=== PATIENT | male | born 1945 | race Caucasian/White ===

== ENCOUNTER 2020-10-21 09:28 | Outpatient (REF) | payer MEDICARE, OTHER, SELFPAY ==
[2020-10-21 10:50] LABS: MANUAL DIFF FLAG NO
[2020-10-21 11:03] LABS: Basophils Absolute Auto 0.1 X10*3/uL (0.0-0.2); Basophils Percent Auto 0.7 % (0-2); Eosinophils Absolute Auto 0.3 X10*3/uL (0.0-0.4); Eosinophils Percent Auto 3.4 % (0-4); Hematocrit 38.4 % (42-52); Hemoglobin 13.4 g/dl (14.0-18.0); Imm Gran Abs Auto 0.02 X10*3/uL (0.00-0.03); Imm Gran Pct Auto 0.3 % (0.0-0.4); Lymphocytes Absolute Auto 2.1 X10*3/uL (1.2-4.9); Lymphocytes Percent Auto 28.1 % (20-40); Mean Corpuscular HGB Conc 34.9 g/dl (31.0-36.0); Mean Corpuscular Hemoglobin 33.6 pg (27.0-33.0); Mean Corpuscular Volume 96.2 fL (80-98); Mean Platelet Volume 9.3 fL (9.4-12.4); Monocytes Absolute Auto 0.9 X10*3/uL (0.1-1.2); Monocytes Percent Auto 11.6 % (2-11); Neutrophils Absolute Auto 4.1 X10*3/uL (2.0-8.3); Neutrophils Percent Auto 55.9 % (45-73); Platelet Count 313 X10*3/uL (160-400); Red Blood Count 3.99 X10*6/uL (4.60-5.80); Red Cell Distribution Width 12.9 % (11.0-16.0); White Blood Count 7.4 X10*3/uL (4.8-10.8)
[2020-10-21 11:24] LABS: Alanine Aminotransferase 17 U/L (0-40); Albumin Level 4.1 g/dL (3.5-5.0); Alkaline Phosphatase 67 U/L (39-117); Anion Gap 11 (12-20); Aspartate Amino Transferase 20 U/L (5-37); Bilirubin Total 0.8 mg/dL (0.0-1.0); Blood Urea Nitrogen 19 mg/dL (9-16); Calcium 9.3 mg/dL (8.4-10.2); Carbon Dioxide 29 mmol/L (22-29); Chloride 104 mmol/L (96-108); Cholesterol 180 mg/dL; Estimated Glomerular Filt Rate 49; Glucose Random 88 mg/dL (60-115); HDL Cholesterol 42 mg/dL; LDL Cholesterol Calculated 104 mg/dl; Potassium 3.9 mmol/L (3.3-5.1); Sodium 140 mmol/L (135-145); Total Protein 7.5 g/dL (6.5-8.0); Triglycerides 172 mg/dL
[2020-10-21 11:48] LABS: Free T4 (Free Thyroxine) 1.08 ng/dL (0.71-1.85); Thyroid Stimulating Hormone 2.08 uIU/mL (0.32-4.0)
[2020-10-21 11:55] LABS: Folate 13.8 ng/mL (> or = 4.0); Vitamin B12 497 pg/mL (200-900)
== END 2020-10-21 09:29 | disposition home or self-care (01) ==
LOC: HO.LAB 09:28
PROVIDERS: PCP Internal Medicine; Visit Provider Internal Medicine
DX: E78.00 Pure hypercholesterolemia, unspecified (principal)
CPT/HCPCS: 36415; 80053; 80061; 82607; 82746; 84439; 84443; 85025

== ENCOUNTER → 2023-10-13 14:37 | Outpatient (RCR) | payer MEDICARE, OTHER, SELFPAY ==
[2020-05-13 14:00] VITALS: BP 121/61; PULSE 80; RESP 12; TEMP 36.6; O2SAT 95
--- NOTE | 2020-05-13 14:29 | PM.HEMONCPN ---
Medical Summary - Medical Summary Date of Service: 05/13/20 Chief complaint: Low blood counts Medical Summary: Diagnosis: Normocytic anemia Family history of hemochromatosis. Patient did not have HFE gene mutation. Interval History Interval history: Patient is here in follow-up. He is doing quite well, he has just returned from [place]. While there he was very active, cycling almost 20 miles every other day. Since returning he reports mild fatigue but no significant exertional shortness of breath. He denies chest pain, palpitation or dizziness. No change in bowel habits. His appetite is good. He has not yet received the COVID-19 vaccine but he has remained healthy during this time. Review of Systems - Constitutional Reports as per HPI, Reports no additional constitutional complaints - Cardiovascular Reports no additional cardiovascular complaints - Respiratory Reports no additional respiratory complaints - Gastrointestinal Reports no additional gastrointestinal complaints [facility] Medical History: Medical History (Last Updated 01/21/20 @ 18:01 by Rubin Ovalle MD) Anemia Jj's esophagus GERD (gastroesophageal reflux disease) Hypercholesterolemia Hypertension Macular degeneration Obesity (BMI 30-39.9) Right shoulder pain Family History: Family History (Last Updated 01/14/20 @ 11:14 by JAZMIN Perez) Father Hypertension Mother Hypertension Cancer Surgical History: Surgical History (Last Updated 01/14/20 @ 11:14 by JAZMIN Perez) History of colonoscopy Social History: Social History (Last Updated 05/13/20 @ 14:04 by Mary Trevino) Alcohol History: Alcohol intake: former Alcohol History Details: Alcohol intake frequency: does not drink Tobacco History: Smoking Status: Never smoker Substance Use History: Use of substances other than those prescribed or required for medical reasons: No Smoking status: Never smoker Oncology Screenings - ECOG Performance Status ECOG Performance Status: 1 Home Medications and Allergies Home Medications Medication Instructions Recorded Confirmed Type hydrochlorothiazide 25 mg tablet 25 mg PO DAILY 01/21/20 05/13/20 History lisinopril 40 mg tablet 40 mg PO DAILY 01/21/20 05/13/20 History omeprazole magnesium 20 mg 20 mg PO DAILY 01/21/20 05/13/20 History tablet,delayed release simvastatin 40 mg tablet 40 mg PO DAILY 01/21/20 05/13/20 History Allergies Allergy/AdvReac Type Severity Reaction Status Date / Time No Known Allergies Allergy Verified 01/14/20 11:13 [No Known Allergies*] Exam Vital signs: Vital Signs Temp 97.9 F 05/13/20 14:00 Pulse 80 05/13/20 14:00 Resp 12 05/13/20 14:00 BP 121/61 05/13/20 14:00 Pulse Ox 95 05/13/20 14:00 Intake & Output 05/12/20 05/13/20 05/13/20 18:59 06:59 18:59 Other: Weight 84.5 kg Weight in Grams [id number] Weight 84.5 kg Body Mass Index 30.0 - Constitutional Present: no acute distress - Routine HEENT Exam Head: Present: normal inspection Eye: Present: EOMI - Routine Neck Exam Absent: lymphadenopathy - Routine Respiratory Exam Present: CTAB - Routine Cardiovascular Exam Cardiovascular: Present: S1, S2 - Routine Extremities Exam Absent: calf tenderness Data - Labs CBC & Chem 7: 05/13/20 14:45 05/13/20 14:45 Progress Note: A/P (1) Anemia Status: Chronic Assessment and plan: 1. This is a 75-year-old male with chronic mild normocytic anemia dating back to at least 2007. No evidence of hematinic deficiencies. His blood work is stable and there is no worsening of his anemia. Hematological workup in the past was negative. Follow-up in 1 year. - Time Spent With Patient Total time spent is greater than 50% in coordination of care (as documented) at patient's floor/unit and/or counseling patient: 15 - 24 minutes
[2020-05-13 14:48] LABS: MANUAL DIFF FLAG NO
[2020-05-13 14:56] LABS: Basophils Absolute Auto 0.1 X10*3/uL (0.0-0.2); Basophils Percent Auto 0.7 % (0-2); Eosinophils Absolute Auto 0.2 X10*3/uL (0.0-0.4); Eosinophils Percent Auto 2.4 % (0-4); Hematocrit 38.3 % (42-52); Hemoglobin 13.4 g/dl (14.0-18.0); Imm Gran Abs Auto 0.01 X10*3/uL (0.00-0.03); Imm Gran Pct Auto 0.1 % (0.0-0.4); Lymphocytes Absolute Auto 1.8 X10*3/uL (1.2-4.9); Lymphocytes Percent Auto 24.9 % (20-40); Mean Corpuscular Hemoglobin 34.4 pg (27.0-33.0); Mean Corpuscular Volume 98.2 fL (80-98); Mean Platelet Volume 9.4 fL (9.4-12.4); Monocytes Percent Auto 14.6 % (2-11); Neutrophils Absolute Auto 4.1 X10*3/uL (2.0-8.3); Neutrophils Percent Auto 57.3 % (45-73); Platelet Count 303 X10*3/uL (160-400); Red Cell Distribution Width 13.5 % (11.0-16.0); White Blood Count 7.1 X10*3/uL (4.8-10.8)
[2020-05-13 15:16] LABS: Alanine Aminotransferase 18 U/L (0-40); Albumin Level 4.1 g/dL (3.5-5.0); Alkaline Phosphatase 67 U/L (39-117); Anion Gap 14 (12-20); Aspartate Amino Transferase 19 U/L (5-37); Bilirubin Total 0.8 mg/dL (0.0-1.0); Blood Urea Nitrogen 22 mg/dL (9-16); Calcium 9.2 mg/dL (8.4-10.2); Carbon Dioxide 27 mmol/L (22-29); Chloride 101 mmol/L (96-108); Creatinine Clr Calc Pharmacy 52.4; Estimated Glomerular Filt Rate 57; Glucose Random 77 mg/dL (60-115); Iron 94 mcg/dL (45-160); Percent Iron Saturation 33 % (15-50); Potassium 4.1 mmol/L (3.3-5.1); Sodium 138 mmol/L (135-145); Total Iron Binding Capacity 281 mcg/dL (228-428); Total Protein 7.4 g/dL (6.5-8.0); Unsaturated Iron Binding 187 ug/dL
[2020-05-13 15:36] LABS: Ferritin 208 ng/mL (20-250); Thyroid Stimulating Hormone 1.77 uIU/mL (0.32-4.0)
[2020-05-13 15:51] LABS: Folate 12.7 ng/mL (> or = 4.0); Vitamin B12 527 pg/mL (200-900)
--- NOTE | 2020-06-27 12:35 | P.PNHO_ITS ---
[facility] Telehealth - Telehealth Location of Provider rendering services: Office Location of Patient: Home Patient Identification confirmed using: Name, : Yes Telehealth Method: Telephone Patient verbally consented to treatment: Yes Patient verbally consented to billing insurance company: Yes Patient informed of any privacy concerns related to visit: Yes Medical Summary - Medical Summary Date of Service: 06/27/20 Chief complaint: Scheduled follow-up Medical Summary: Diagnosis: Normocytic anemia Family history of hemochromatosis. Patient did not have HFE gene mutation. Interval History Interval history: This is scheduled follow-up for patient, he was consented for tele visit based on COVID-19 pandemic guidelines. He is doing very well and has no complaints such as excess fatigue, fever or chills. No exertional shortness of breath or chest pain. Review of Systems - Constitutional Reports as per HPI, Reports no additional constitutional complaints - Cardiovascular Reports no additional cardiovascular complaints - Gastrointestinal Reports no additional gastrointestinal complaints Home Medications and Allergies Home Medications Medication Instructions Recorded Confirmed Type hydrochlorothiazide 25 mg tablet 25 mg PO DAILY 01/21/20 05/13/20 History lisinopril 40 mg tablet 40 mg PO DAILY 01/21/20 05/13/20 History omeprazole magnesium 20 mg 20 mg PO DAILY 01/21/20 05/13/20 History tablet,delayed release simvastatin 40 mg tablet 40 mg PO DAILY 01/21/20 05/13/20 History Allergies Allergy/AdvReac Type Severity Reaction Status Date / Time No Known Allergies Allergy Verified 01/14/20 11:13 [No Known Allergies*] Exam Vital signs: Vital Signs Temp 97.9 F 05/13/20 14:00 Pulse 80 05/13/20 14:00 Resp 12 05/13/20 14:00 BP 121/61 05/13/20 14:00 Pulse Ox 95 05/13/20 14:00 Weight 84.5 kg Body Mass Index 30.0 Narrative: Patient was not examined today - Constitutional Present: no acute distress - Routine HEENT Exam Head: Present: normal inspection - Routine Neck Exam Absent: lymphadenopathy - Routine Respiratory Exam Present: CTAB - Routine Cardiovascular Exam Cardiovascular: Present: S1, S2 - Routine Extremities Exam Absent: calf tenderness Data - Labs CBC & Chem 7: 05/13/20 14:45 05/13/20 14:45 Labs: 05/13/20 14:45 Complete Blood Count Auto Diff Routine Comprehensive Met. Panel Routine Ferritin Routine IRON PROFILE Routine TSH [Thyroid Stimulating Hormone] Routine Vitamin B12 and Folate Routine Laboratory Last Values WBC 7.1 X10*3/uL (4.8-10.8) 05/13/20 14:45 RBC 3.90 X10*6/uL (4.60-5.80) L 05/13/20 14:45 Hgb 13.4 g/dl (14.0-18.0) L 05/13/20 14:45 Hct 38.3 % (42-52) L 05/13/20 14:45 MCV 98.2 fL (80-98) H 05/13/20 14:45 MCH 34.4 pg (27.0-33.0) H 05/13/20 14:45 MCHC 35.0 g/dl (31.0-36.0) 05/13/20 14:45 RDW 13.5 % (11.0-16.0) 05/13/20 14:45 Plt Count 303 X10*3/uL (160-400) 05/13/20 14:45 MPV 9.4 fL (9.4-12.4) 05/13/20 14:45 Immature Gran % (Auto) 0.1 % (0.0-0.4) 05/13/20 14:45 Neut % (Auto) 57.3 % (45-73) 05/13/20 14:45 Lymph % (Auto) 24.9 % (20-40) 05/13/20 14:45 [place] % (Auto) 14.6 % (2-11) H 05/13/20 14:45 Eos % (Auto) 2.4 % (0-4) 05/13/20 14:45 Baso % (Auto) 0.7 % (0-2) 05/13/20 14:45 Lymph # (Auto) 1.8 X10*3/uL (1.2-4.9) 05/13/20 14:45 [place] # (Auto) 1.0 X10*3/uL (0.1-1.2) 05/13/20 14:45 Eos # (Auto) 0.2 X10*3/uL (0.0-0.4) 05/13/20 14:45 Baso # (Auto) 0.1 X10*3/uL (0.0-0.2) 05/13/20 14:45 Abs Immat Gran (auto) 0.01 X10*3/uL (0.00-0.03) 05/13/20 14:45 Absolute Neuts (auto) 4.1 X10*3/uL (2.0-8.3) 05/13/20 14:45 Absolute Nucleated RBC 0.000 X10*3/uL (0.0-0.012) 05/13/20 14:45 Nucleated RBC % (auto) 0.0 /100WBC (0.0-0.2) 05/13/20 14:45 Sodium 138 mmol/L (135-145) 05/13/20 14:45 Potassium 4.1 mmol/L (3.3-5.1) 05/13/20 14:45 Chloride 101 mmol/L (96-108) 05/13/20 14:45 Carbon Dioxide 27 mmol/L (22-29) 05/13/20 14:45 Anion Gap 14 (12-20) 05/13/20 14:45 BUN 22 mg/dL (9-16) H 05/13/20 14:45 Creatinine 1.24 mg/dL (0.5-1.4) 05/13/20 14:45 Estim Creat Clear Calc 52.4 05/13/20 14:45 Estimated GFR 57 05/13/20 14:45 Random Glucose 77 mg/dL (60-115) 05/13/20 14:45 Calcium 9.2 mg/dL (8.4-10.2) 05/13/20 14:45 Iron 94 mcg/dL (45-160) 05/13/20 14:45 TIBC 281 mcg/dL (228-428) 05/13/20 14:45 % Saturation 33 % (15-50) 05/13/20 14:45 Unsat Iron Binding 187 ug/dL 05/13/20 14:45 Ferritin 208 ng/mL (20-250) 05/13/20 14:45 Total Bilirubin 0.8 mg/dL (0.0-1.0) 05/13/20 14:45 AST 19 U/L (5-37) 05/13/20 14:45 ALT 18 U/L (0-40) 05/13/20 14:45 Alkaline Phosphatase 67 U/L (39-117) 05/13/20 14:45 Total Protein 7.4 g/dL (6.5-8.0) 05/13/20 14:45 Albumin 4.1 g/dL (3.5-5.0) 05/13/20 14:45 Vitamin B12 527 pg/mL (200-900) 05/13/20 14:45 Folate 12.7 ng/mL (> or = 4.0) 05/13/20 14:45 TSH 1.77 uIU/mL (0.32-4.0) 05/13/20 14:45 Progress Note: A/P (1) Anemia Status: Chronic Assessment and plan: 1. This is a 75-year-old male with chronic mild normocytic anemia dating back to at least 2007. No evidence of hematinic deficiencies. His blood work is stable and there is no worsening of his anemia. Hematological workup in the past was negative. I discussed with the patient the possibility of myelodysplastic syndrome. However his hemoglobin has been stable for several years. Bone marrow biopsy/evaluation can be performed if there is progressive decline in blood counts or he is symptomatic. CBC every 6 months is recommended. I spent about 10 minutes with the patient on the telephone. Follow-up as needed. - Time Spent With Patient Total time spent is greater than 50% in coordination of care (as documented) at patient's floor/unit and/or counseling patient: less than 15 minutes
--- NOTE | 2020-06-27 14:58 | MHC.HEMONCMA ---
Patient had a telehealth appt today, states that he is doing well. Clinical summary was reviewed and updated. Patient did not have labs and will return in 6 months for a follow up.
== END | disposition home or self-care (01) ==
LOC: HO.ONC 05-13 13:44
PROVIDERS: PCP Internal Medicine; Visit Provider Internal Medicine
DX: D64.9 Anemia, unspecified (principal)
CPT/HCPCS: 36415; 80053; 82607; 82728; 82746; 83540; 84443; 85025; 99213; Q3014

== ENCOUNTER 2023-10-23 10:20 | Emergency (ER) | payer MEDICARE, OTHER, SELFPAY ==
--- NOTE | ~2023-10-23 | XR_ITS ---
EXAMINATION: XR LUMBOSACRAL SPINE CLINICAL INFORMATION: Lower back pain COMPARISON: None available. TECHNIQUE: Three views of the lumbosacral spine. FINDINGS: There are 5 nonrib-bearing lumbar type vertebra. No evidence of acute fracture or malalignment. Grade 1, 6 mm retrolisthesis of L3 on L4. Vertebral body heights are maintained. Moderate to severe focal disc space height loss at L3-4 with endplate sclerosis and osteophytosis. Mild disc space height loss at L1-2. Additional multilevel small upper lumbar endplate osteophytes. Mild lower lumbar facet arthropathy. Aortic vascular calcifications. Soft tissues are unremarkable. Partially visualized bilateral hip arthroplasties XR/XR lumbar spine 2-3V IMPRESSION: Moderate to severe focal degenerative disc disease at L3-4 with grade 1 retrolisthesis of L3 on L4. Electronically signed by: Jose East MD 10/23/2023 10:44 AM EDT
[2023-10-23 10:22] VITALS: BP 172/92; PULSE 87; RESP 18; TEMP 36.4; O2SAT 98; BMI 27.5
[2023-10-23] MEDS: Lidocaine 4 % Patch ADH..PATCH 1 PATCH TRANSDERMA (11:16)
[2023-10-23] MEDS: Ketorolac Tromethamine 30 MG/ML VIAL IM (11:19)
--- NOTE | 2023-10-23 12:40 | ED.BACK ---
HPI - Back Pain/Injury General Chief Complaint: Back Pain/Injury Stated Complaint: R side back pain Time Seen by Provider: 10/23/23 10:34 Source: patient, RN notes reviewed and old records reviewed Mode of arrival: ambulatory History of Present Illness ED Provider: Brenna Blanchard PA-C HPI Narrative: 78-year-old male with a past medical history of anemia, Jj's esophagus, GERD, HTN, HLD, presenting to the ED complaining of right-sided low back/flank pain x5 days. Reports pain is nonradiating, worse in morning, improves throughout the day. Admits to heavy lifting, two 5 gallon buckets of tar prior to symptoms starting however denies known injury. Denies fever, chills, dysuria/hematuria, abdominal pain, testicular pain Related Data Previous Rx's ?Medication ?Instructions ?Recorded clotrimazole-betamethasone 1 1 appl topical BID 2 weeks #45 10/17/20 %-0.05 % topical cream grams terbinafine HCl 250 mg tablet 250 mg PO DAILY 30 days #30 tabs 11/11/20 simvastatin 40 mg tablet 40 mg PO DAILY #90 tabs 12/24/20 omeprazole magnesium 20 mg 20 mg PO DAILY #90 tabs 07/28/21 tablet,delayed release (Prilosec OTC) hydrochlorothiazide 25 mg tablet 25 mg PO DAILY 90 days #90 tabs 01/11/22 lisinopril 40 mg tablet 40 mg PO DAILY #90 tabs 04/02/22 acetaminophen 500 mg tablet 500 mg PO Q6H PRN fever or pain 10/23/23 (Tylenol Extra Strength) #14 tabs cyclobenzaprine 5 mg tablet 5 mg PO Q8H PRN pain (scale score 10/23/23 7-10) 5 days #14 tabs lidocaine 5 % topical patch 1 patch topical DAILY PRN pain #30 10/23/23 (Lidoderm) ea Allergies Allergy/AdvReac Type Severity Reaction Status Date / Time No Known Allergies Allergy Verified 10/23/23 10:25 [No Known Allergies*] Review of Systems Review of Systems: Yes all other systems are reviewed and are negative Constitutional: Constitutional: Reports as per HPI Neurologic: Denies Sensory deficit (Neuro) PMFSH Past Medical History Attestation statement: The following information was validated with the patient. Source: old records reviewed Medical History Anemia Macular degeneration Right shoulder pain Jj's esophagus Obesity (BMI 30-39.9) GERD (gastroesophageal reflux disease) Hypertension Hypercholesterolemia Surgical History History of colonoscopy Family History Family History Father Hypertension Mother Hypertension Cancer Social History Social History Housing: House Alcohol intake: former Patient Tobacco Use Status: Never used Tobacco e-Cigarette/Vaping Use: Never Used Second Hand Smoke Exposure: No Advance Directives: No Advance Directives Information Provided: No Do you have a plan to hurt others: No Plan service: No Current occupational status: retired Physical Exam Vital Signs: Vital Signs: Last Vital Signs Temp 97.6 F 10/23/23 10:22 Pulse 87 10/23/23 10:22 Resp 18 10/23/23 10:22 BP 172/92 H 10/23/23 10:22 Pulse Ox 98 10/23/23 10:22 O2 Del Method Room Air 10/23/23 10:22 BMI result Body Mass Index 27.5 Const: General: cooperative, healthy appearing and no acute distress Orientation/consciousness: patient oriented x3 Limitations: no limitations HEENT: Head: Yes normal to inspection and Yes atraumatic Ears: hearing grossly normal bilaterally General nose exam: Normal external nose present Face and sinus: Yes normal facial exam Eyes: General: appearance normal, both eyes and all related structures EOM: EOMs intact bilaterally Neck: Neck: Yes normal visual inspection and Yes no meningeal signs Resp: Effort & Inspection: normal respiratory effort and no respiratory distress Cardio: Rate: regular rate GI: Inspection: Yes normal to inspection Palpation (GI): Soft to palpation, nontender, no guarding and not rigid : General: Yes no CVA tenderness Back/Spine/Pelvis: Other: No midline cervical/thoracic/lumbar spinous tenderness/step-off or deformity. + right-sided lumbar MSK tenderness to palpation/right flank. No erythema/ecchymosis or rash. No flail chest. Back: no CVA tenderness Skin: Rashes: no rashes Wounds: no wounds Neuro: Other: Strength intact throughout. No saddle anesthesia. Sensation intact to light touch. Neurovascular intact distally General: patient oriented x3, gait normal, tone normal, moves all extremities and no meningeal signs Cranial nerves: Yes CN's II-XII intact bilaterally Gait exam (Neuro): Normal gait present Sensory Exam: No Sensory deficit (Neuro) Extrem: General: Yes normal to inspection Course Course Course Narrative: XR lumbar spine 2-3V IMPRESSION: Moderate to severe focal degenerative disc disease at L3-4 with grade 1 retrolisthesis of L3 on L4. >>[id number]--patient unsuccessful in providing urine sample. Admits urinated twice prior to arrival without difficulty. Bladder scan shows 194 cc. Low suspicion for acute retention. Has been ambulating around the ED without difficulty. Patient would like to be discharged home prior to providing urine sample. Will discharge home with symptomatic remedies and close PCP follow-up Results discussed with patient including worrisome signs and symptoms and strict return precautions, and when to return to the emergency department. They verbalized understanding and feel safe for discharge at this time. Medications Administered Discontinued Medications Generic Name Dose Route Start Last Admin Trade Name Freq PRN Reason Stop Dose Admin Cyclobenzaprine HCl 10 mg 10/23/23 10:57 10/23/23 11:22 Cyclobenzaprine Hcl 10 Mg Tablet PO 10/23/23 10:58 Not Given ONCE ONE Ketorolac Tromethamine 30 mg 10/23/23 10:57 10/23/23 11:19 Ketorolac Tromethamine 30 Mg/Ml Vial IM 10/23/23 10:58 30 mg ONCE ONE Administration Lidocaine 1 patch 10/23/23 10:57 10/23/23 11:16 Lidocaine 4 % Patch Adh..Patch TRANSDERMA 10/23/23 10:58 1 patch ONCE ONE Administration Protocol Medical Decision Making Medical Decision Making MDM Narrative: 78-year-old male with a past medical history of anemia, Jj's esophagus, GERD, HTN, HLD, presenting to the ED complaining of right-sided low back/flank pain x5 days. On exam vital signs stable, NAD/nontoxic appearing, physical exam as noted above. No midline spinous tenderness or red flag symptoms. Concern for MSK pain/strain. Pyelo/renal stone or UTI on differential however lower, will obtain UA. Unlikely cauda equina/cord compression or abscess. Unlikely fracture Plan: X-ray, UA, pain control Please refer to course for remaining clinical decision making, interpretation of labs/imaging results, and discussions with consultants and/or family members. Differential Diagnosis Differential Diagnoses: The differential diagnosis associated with the presentation includes As above Admission/Observation Consideration of admission/observation: Escalation of care including admission/observation considered Lab Data MDM Lab Attestation statement: I reviewed the patient's lab results. Independent Interpretation I performed an independent interpretation of an: Plain X-Ray Radiology Impression Discussion of test interpretation with radiology: I have reviewed the radiologist's reading. External Record Review External record reviewed: Inpatient record, Office record, Outpatient record, Prior outpatient labs, Prior outpatient radiology, Primary care record and Outside ED record Tests considered The following testing was considered but not selected: As above Prescription Management I considered prescription management with: Pain Medication and Antibiotic Discharge Plan Discharge Clinical Impression: Acute right-sided low back pain, Right flank pain Patient Disposition: Home, Self-Care Instructions: Acute Low Back Pain (ED), Flank Pain (ED) Additional Instructions: Your pain is likely musculoskeletal Your x-ray shows some degenerative/osteoarthritic changes. You are unable to supply a urine sample, if you have difficulty or inability to urinate, blood in your urine, fever/chills, vomiting return to the emergency department immediately Flexeril is a muscle relaxer, take at night as it makes you drowsy, do not drive, drink alcohol, or operate machinery while taking it Lidoderm patches are numbing patches, apply to painful area In addition take Tylenol at home If symptoms persist or worsen, pain becomes unbearable, you developed urinary retention or incontinence, or weakness return to the ED Please follow-up with your doctor Prescriptions: New acetaminophen [Tylenol Extra Strength] 500 mg tablet 500 mg PO Q6H PRN (Reason: fever or pain) Qty: 14 0RF lidocaine [Lidoderm] 5 % adhesive patch,medicated 1 patch topical DAILY MDD remove after 12 hours PRN (Reason: pain) Qty: 30 0RF Rx Instructions: leave on most painful area for up to 12 hrs cyclobenzaprine 5 mg tablet 5 mg PO Q8H PRN (Reason: pain (scale score 7-10)) 5 Days Qty: 14 0RF No Action simvastatin 40 mg tablet 40 mg PO DAILY Qty: 90 3RF omeprazole magnesium [Prilosec OTC] 20 mg tablet,delayed release (DR/EC) 20 mg PO DAILY Qty: 90 3RF hydrochlorothiazide 25 mg tablet 25 mg PO DAILY 90 Days Qty: 90 1RF lisinopril 40 mg tablet 40 mg PO DAILY Qty: 90 3RF clotrimazole-betamethasone 1-0.05 % cream 1 appl topical BID 14 Days Qty: 45 0RF terbinafine HCl 250 mg tablet 250 mg PO DAILY 30 Days Qty: 30 3RF Referrals: Po,Rubin Gomez MD [Primary Care Provider] - 2 days Print Language: Argentine
--- NOTE | 2023-10-23 12:44 | PC.NURSE ---
pt having difficulty providing UA - water provided- ok per PA
[2023-10-23 14:30] VITALS: BP 172/92; PULSE 87; RESP 18; TEMP 36.4; O2SAT 98
== END 2023-10-23 14:30 | disposition home or self-care (01) ==
PROVIDERS: Emergency Provider Emergency Medicine Emergency Medical Services; PCP Internal Medicine
DX: M54.50 Low back pain, unspecified (principal); R10.9 Unspecified abdominal pain; I10 Essential (primary) hypertension; Z79.899 Other long term (current) drug therapy
CPT/HCPCS: 51798; 72100; 96372; 99283; 99284; J1885

== ENCOUNTER 2023-11-02 09:27 | Outpatient (AMB) | payer MEDICARE, OTHER, SELFPAY ==
[2023-11-02 09:31] VITALS: BP 142/78; PULSE 84; O2SAT 97; BMI 29.8
--- NOTE | 2023-11-02 09:31 | A.OFFPC_ITS ---
Vital Signs 11/02/23 09:31 11/02/23 09:51 Height 5 ft 5 in Weight 179 lb BMI 29.8 BP 142/78 H 130/78 Blood Pressure Location Lt brachial Lt brachial Position Sitting Sitting Pulse 84 Pulse Source Pulse Oximeter Pulse Oximetry (%) 97 Oxygen Delivery Method Room Air Intake Visit Reasons: [facility] 10/22 low back pain Water Supervisor Required: No Accompanied by: Self / Same As Patient Allergies No Known Allergies [No Known Allergies*] Allergy (Verified 11/02/23 09:33) Medication List - Last Reconciled 11/02/23 by Jenn Lopez PA-C acetaminophen (Tylenol Extra Strength) 500 mg PO Q6H PRN cyclobenzaprine 5 mg PO Q8H PRN 5 days lisinopril 40 mg PO DAILY omeprazole magnesium (Prilosec OTC) 20 mg PO DAILY Tobacco use date assessed: 11/02/23 Fall risk assessment: No Falls in past year Last assessed Fall Risk: 11/02/23 Dental Screening Dental Screen Date: 11/02/23 Did you have a dental visit in the last 12 months?: No Did you have a dental problem in the last 6 months where you did not have access to dental care?: No Was dental information given to patient?: Patient has dentist HPI [facility] 10/22 low back pain HPI Details 78-year-old obese male with past medical history of hypertension, hypercholesterolemia, GERD, Jj's esophagus last seen by Dr. Ovalle in 2021 coming in for hospital follow up.? In review of the notes, patient was seen in [facility] ED for low back/flank pain x-ray was negative for acute changes.? Patient was unable to provide urine sample at that time and was given Flexeril and lidocaine patches and discharged home. Patient states his right-sided back pain began after he was mopping and dumping buckets of water about 3 weeks ago. The muscle relaxant given to him by the ER was helping at night with the pain as well as Tylenol during the day. He also went to a massage therapist but did not have good improvement. He regularly follows with a doctor in [place] for his primary care. Denies any urinary symptoms or fevers at this time. [facility] Medical History Anemia Macular degeneration Right shoulder pain Jj's esophagus Obesity (BMI 30-39.9) GERD (gastroesophageal reflux disease) Hypertension Hypercholesterolemia Surgical History History of colonoscopy Family History Father Hypertension Mother Hypertension Cancer Social History Housing: House Alcohol intake: former Patient Tobacco Use Status: Never used Tobacco Tobacco use type: Cigarette e-Cigarette/Vaping Use: Never Used Second Hand Smoke Exposure: No service: No Current occupational status: retired Cognitive needs: No Hearing needs: No Vision needs: Yes Questionnaire PHQ-9 Over the last 2 weeks, how often have you been bothered by any of the following problems? 1. Little interest or pleasure in doing things: not at all 2. Feeling down, depressed, or hopeless: not at all 3. Trouble falling or staying asleep, or sleeping too much: not at all 4. Feeling tired or having little energy: not at all 5. Poor appetite or overeating: not at all 6. Feeling bad about yourself - or that you are a failure or have let yourself or your family down: not at all 7. Trouble concentrating on things, such as reading the newspaper or watching television: not at all 8. Moving or speaking so slowly that other people could have noticed. Or the opposite - being so fidgety or restless that you have been moving around a lot more than usual: not at all 9. Thoughts that you would be better off or of hurting yourself in some way: not at all Total score: 0 Source: Developed by Drs. Haile Ralph, Samia Chacon, Panfilo Montgomery and colleagues, with an educational kathy from [employer]. Thrive Questionnaire Date Thrive assessed: 11/02/23 I am a: Patient What is your living situation today?: I have a steady place to live Within the past 12 months, did the food you bought not last and you didn't have the money to get more?: Never true Within the past 12 months, did you worry whether your food would run out before you got money to buy more?: Never true THRIVE Score: 0 AUDIT C Alcohol Use Questionnaire (AUDIT-C) 1. How often do you have a drink containing alcohol?: Monthly or less 2. How many drinks containing alcohol do you have on a typical day when you are drinking?: 1 or 2 3. How often do you have six or more drinks on one occasion?: Never Total Score: 1 JAYCOB-7 AMB Questionnaire JAYCOB-7 Date JAYCOB - 7 assessed: 11/02/23 Feeling nervous, anxious, or on edge: 0 = Not at all Not being able to stop or control worryin = Not at all Worrying too much about different things: 0 = Not at all Trouble relaxin = Not at all Being so restless that it is hard to sit still: 0 = Not at all Becoming easily annoyed or irritable: 0 = Not at all Feeling afraid as if something awful might happen: 0 = Not at all Total JAYCOB-7 score (0-4 normal; 5-9 mild; 10-14 moderate; 15-21 severe): 0 Source: Developed by Drs. Haile Ralph, Samia Chacon, Panfilo Montgomery and colleagues, with an educational kathy from [employer]. Review of Systems Const Denies body aches, Denies fever(s) and Denies headache(s) Eyes Reports no additional complaints ENT Denies dizziness and Denies headache(s) Card Denies chest pain and Denies dyspnea Resp Denies dyspnea GI Denies nausea and Denies vomiting Denies hematuria, Denies difficulty urinating, Denies dysuria, Denies urinary frequency and Denies urinary incontinence Musc Reports abnormal gait and Reports back pain Skin/Breast Reports system reviewed and no additional complaints, except as documented Neuro Reports abnormal gait, Denies dizziness and Denies headache(s) Psych Reports no additional complaints Physical exam (Primary Care) BMI result Body Mass Index 29.8 Tobacco/Smoking Status: Tobacco use Status Tobacco use date assessed 10/17/20 11/01/23 11:15 Patient Tobacco Use Status Never used Tobacco 11/01/23 11:15 e-Cigarette/Vaping Use Never Used 11/01/23 11:15 Thrive Assessment: Date of Thrive Assessment Date Thrive assessed 10/17/20 11/01/23 11:15 Const General: cooperative, healthy appearing, comfortable and no acute distress Orientation/consciousness: patient oriented x3 HENMT Head: Yes normocephalic Ears: hearing grossly normal bilaterally General nose exam: Normal external nose present Eyes General: appearance normal, both eyes and all related structures Conjunctivae: conjunctivae normal Neck Neck: Yes full ROM and Yes no lymphadenopathy Resp Effort & Inspection: normal respiratory effort Auscultation: clear to auscultation bilaterally, no crackles, no rales, no rhonchi and no wheezes Cardio Rate: regular rate Rhythm: regular rhythm General: Yes no CVA tenderness Back/Spine/Pelvis Other: Tenderness to palpation of right lumbar paraspinal muscles Back: no CVA tenderness Skin General skin exam: no rashes or lesions noted Neuro General: patient oriented x3 Gait exam (Neuro): Normal gait present Extrem General: Yes normal to inspection, Yes full ROM and No edema Psych Affect: normal affect Attitude: cooperative Insight: Good insight present (Psych) Judgement: Good judgement present (Psych) Assessment and Plan Assessment & Plan (1) Low back pain: Code(s): M54.50 - Low back pain, unspecified Plan: Back pain appears to be muscular in nature and has been improving with Tylenol and muscle relaxer. Patient does still continue to have [id number] discomfort in the back and has tried massage with no relief. Recommend physical therapy for stretching and strengthening exercises and referral was placed today. Patient was also given printed referral if he does return to [place] in t he time being. Muscle relaxer refilled. Follow up as needed for this concern. (2) GERD (gastroesophageal reflux disease): Code(s): K21.9 - Gastro-esophageal reflux disease without esophagitis Plan: Avoid trigger foods such as citrus, tomato products, soda, caffeine, spicy foods and other foods that may be irritating to your stomach. Avoid laying flat 3-4 hours after eating and elevate the head of the bed 30 degrees to prevent acid from moving into the esophagus. Continue on omeprazole (3) Hypertension: Code(s): I10 - Essential (primary) hypertension Qualifiers: Hypertension type: essential hypertension Qualified Code(s): I10 - Essential (primary) hypertension Plan: Blood pressure at goal today. Continue on lisinopril 40 mg, hydrochlorothiazide 25 mg. Avoid salt intake and encourage healthy diet and regular exercise. (4) Hypercholesterolemia: Code(s): E78.00 - Pure hypercholesterolemia, unspecified Plan: Avoid foods that are high in cholesterol such as red meat, fried foods, eggs and baked goods. Triglyceride goal of less than 150 and LDL goal of less than 100. Continue on simvastatin 40 mg. Continue to follow with routine blood work thr ough your primary care in [place]. Plan This note was constructed using voice recognition software. While every effort has been made to ensure accuracy and master ocean yacht, still areas may have been included sometimes these areas may affect the content or meeting of the given symptoms. Total time spent caring for the patient today was 30 minutes. This includes time spent before the visit reviewing the chart, time spent during the visit, and time spent after the visit and documentation. Orders: Orders PT Evaluation and Treatment Today M54.50 - Low back pain, unspecified Medications: Refilled cyclobenzaprine 5 mg PO Q8H 5 days PRN 14 tabs 0RF pain (scale score 7-10) Coding Level of Care Code Est Pt Level 3 (93995) Diagnoses Low back pain M54.50 GERD (gastroesophageal reflux disease) K21.9 Essential hypertension I10 Hypertension type: essential hypertension Hypercholesterolemia E78.00
[2023-11-02 09:51] VITALS: BP 130/78
== END 2023-11-02 10:07 | disposition home or self-care (01) ==
PROVIDERS: PCP Internal Medicine
DX: M54.50 Low back pain, unspecified (principal); K21.9 Gastro-esophageal reflux disease without esophagitis; I10 Essential (primary) hypertension; E78.00 Pure hypercholesterolemia, unspecified

== ENCOUNTER → 2023-11-02 09:27 | Outpatient (BNVA) | payer MEDICARE, OTHER, SELFPAY | PROVIDERS: PCP Internal Medicine | DX: M54.50 Low back pain, unspecified (principal); K21.9 Gastro-esophageal reflux disease without esophagitis; I10 Essential (primary) hypertension; E78.00 Pure hypercholesterolemia, unspecified | CPT/HCPCS: 99212 ==

== ENCOUNTER 2024-08-28 08:35 | Outpatient (REF) | payer MEDICARE, OTHER, SELFPAY ==
--- OUTSIDE RECORDS SUMMARY | 2024-08-28 08:42 | XMS_ITS | Clinical Summary ---
[facility] Address [address] [place] [address] Care Team Providers Care Strategic Planning Consultant Name Role Phone Jeramy Crespo DO Primary Care Provider [phone] Allergies No known active allergies Medications lisinopril 40 MG tablet Take 1 tablet (40 mg total) by mouth 1 (one) time each day. Active omeprazole (PriLOSEC) [address] capsule Take 1 capsule (20 mg total) by mouth 1 (one) time each day before breakfast. 05/04/2023 Active Active Problems No known active problems Social History Tobacco Use Types Packs/Day Years Used Date Smoking Tobacco: Former Cigarettes Smokeless Tobacco: Never Tobacco Cessation:Counseling Given: Not Answered Alcohol Use Standard Drinks/Week Comments Not Currently 0 (1 standard drink = 0.6 oz pur e alcohol) [facility] Safety Answer Date Recorded How often does anyone, kristy longoria family and friends, threaten you with harm? 1 07/19/2023 How often does anyone, kristy longoria family and friends, insult or talk down to you? 1 07/19/2023 How often does anyone, kristy longoria family and friends, physically hurt you? 1 07/19/2023 How often does anyone, kristy longoria family and friends, scream or curse at you? 1 07/19/2023 Sex and Gender Information Value Date Recorded Sex Assigned at Not on file Legal Sex Male 11:12 AM EST Gender Identity Not on file Sexual Orientation Not on file Last Filed Vital Signs Vital Sign Reading Time Taken Comments Blood Pressure 146/68 07/20/2023 11:55 AM EDT Pulse 74 07/20/2023 11:55 AM EDT Temperature 36.4 C (97.5 F) 07/20/2023 11:55 AM EDT Respiratory Rate 16 07/20/2023 8:04 AM EDT Oxygen Saturation 96% 07/20/2023 11:55 AM EDT Inhaled Oxygen Concentration - - Weight 89.9 kg (198 lb 3.1 oz) 07/20/2023 3:49 A M EDT Height 167.6 cm (5' 6 ) 06/22/2023 11:17 AM EDT Body Mass Index 31.99 06/22/2023 11:17 AM EDT Plan of Treatment Health Maintenance Due Date Last Done Comments Medicare Annual Wellness (AWV) 1945 Depression Screening 1957 DTaP/Tdap/Td Vaccines (1 - Tdap) 1964 Zoster Vaccines (2 of 2) 06/16/2020 04/21/2020 Pneumococcal Vaccine: 50+ Years (2 of 2 - PPSV23) 04/21/2021 04/21/2020 COVID-19 Vaccine (3 - season) 2023 02/28/2023, 12/28/2020 Diabetes Screening 07/19/2024 07/20/2023, 0 06/22/2023, 05/06/2021, Additional history exists Influenza Vaccine (#1) 2024 12/28/2020 Lipid Panel 11/19/2027 11/18/2022, 10/05/2021, 03/30/2021, Additional history exists Respiratory Syncytial Virus (RSV) 60 years and older and/or patients Completed 02/28/2023 HPV Vaccines Aged Out No longer eligi ble based on patient's age to complete this topic Hepatitis A Vaccines Aged Out No long er eligible based on patient's age to complete this topic Hepatitis B Vaccines Aged Out No long er eligible based on patient's age to complete this topic Meningococcal B Vaccine Aged Out No l onger eligible based on patient's age to complete this topic Meningococcal Vaccine Aged Out No brandon behzad eligible based on patient's age to complete this topic Respiratory Syncytial Virus (RSV) <20 months Aged Out No longer eligible based on patient's age to complete this topic Medical Devices Implanted Type Area Steel Detailer Device Identifier Shelf Expiration Date Model / Serial / Lot Insert Acet Altrx Bear +4mm Ntrl [id number] - S0000 - [id number] Implanted:Qty: 1 on 07/19/2023 by Zay Miller MD at [facility] Implants Left: Hip [employer] 08/14/2027 1221-36-4 54 / 0000 / [id number] Cup Acet Gription Hip Sector Ii [place] 54mm - S0000 - [id number] Implanted:Qty: 1 on 07/19/2023 by Zay Miller MD at [facility] Implants Left: Hip [employer] 03/16/2033 1217-32-0 54 / 0000 / [id number] Stem Fem Col Actis Duofix Hi Ofs 01/27 Sz8 - S0000 - [id number] Implanted:Qty: 1 on 07/19/2023 by Zay Miller MD at [facility] Implants Left: Hip [employer]ES 11/13/2032 1010-12-0 80 / 0000 / [id number] Head Fem Ultamet Hip Tprd Articul/Jere -2mm 01/27 36mm - S0000 - [id number] Implanted:Qty: 1 on 07/19/2023 by Zay Miller MD at [facility] Implants Left: Hip [employer] 02/14/2028 1365-50-0 00 / 0000 / [id number] Procedures Procedure Name Priority Date/Time Associated Diagnosis Comments BASIC METABOLIC PANEL Routine 07/20/2023 3:48 AM EDT from Last 3 Months or Most Recently Relevant to Health Maintenance Results * (ABNORMAL) Basic metabolic panel (07/20/2023 3:48 AM EDT) Sodium 135(L) 136 - 145 mmol/L 07/20/2023 4:52 AM EDT [facility] Potassium 4.1 3.5 - 5.1 mmol/L 07/20/2023 4:52 AM EDT [facility] [place] Chloride 101 98 - 107 mmol/L 07/20/2023 4:52 AM EDT [facility] [place] Carbon Dioxide 23.0 22.0 - 29.0 mmol/L 07/20/2023 4:52 AM EDT [facility] [place] Anion Gap 11 8 - 16 mmol/L 07/20/2023 4:52 AM EDT [facility] [place] Glucose 129(H) 70 - 115 mg/dL 07/20/2023 4:52 AM EDT [facility] [place] BUN 20.0 6.0 - 20.0 mg/dL 07/20/2023 4:52 AM EDT [facility] [place] Creatinine 1.20 0.70 - 1.20 mg/dL 07/20/2023 4:52 AM EDT [facility] [place] Calcium 8.8 8.6 - 10.2 mg/dL 07/20/2023 4:52 AM EDT [facility] [place] eGFR 61.9 mL/min/{1. 73_m2} 07/20/2023 4:52 AM EDT [facility] [place] Comment: GFR calculated based on CKD-EPI 2020 Creatinine Equation Age (Years) Average GFR 20-29 116 mL/min/1.73 m2 30-39 107 mL/min/1.73 m2 40-49 99 mL/min/1.73 m2 50-59 93 mL/min/1.73 m2 60-69 85 mL/min/1.73 m2 70+ 75 mL/min/1.73 m2 Acceptable GFR: >= 60 mL/min/1.73 m2 Chronic Kidney Disease: <60 mL/min/1.73 m2 Kidney Failure: <15 mL/min/1.73 m2 Blood Venous blood specimen / Unknown Venipuncture / Unknown 07/20/2023 3:48 AM EDT 07/20/2023 4:27 AM EDT us Zay Miller MD LAB BLOOD ORDERABLES F inal Result [facility] [address] [address], from Last 3 Months or Most Recently Relevant to Health Maintenance Insurance MEDICARE [facility] Advance Directives * Full Code (Latest Code Status on File) Date Activated Date Inactivated Comments 07/19/2023 9:10 AM 07/20/2023 3:03 PM * Full Code Date Activated Date Inactivated Comments 07/18/2023 12:05 PM 07/19/2023 9:10 AM * Full Code Date Activated Date Inactivated Comments 07/04/2023 12:53 PM 07/05/2023 10:11 AM Care Teams Strategic Planning Consultant Relationship Specialty Start Date End Date Jeramy Crespo DO [address] [place] [address] PCP - General Family Medicine 06/22/23
[2024-08-28 08:50] LABS: MANUAL DIFF FLAG NO
[2024-08-28 09:15] LABS: Hematocrit 25.7 % (42.0-52.0); Hemoglobin 8.7 g/dl (14.0-18.0); Imm Gran Abs Auto 0.01 X10*3/uL (0.00-0.03); Imm Gran Pct Auto 0.3 % (0.0-0.4); Lymphocytes Absolute Auto 1.4 X10*3/uL (1.2-4.9); Mean Corpuscular HGB Conc 33.9 g/dl (31.0-36.0); Mean Corpuscular Hemoglobin 37.8 pg (27.0-33.0); NRBC Abs Auto 0.000 X10*3/uL (0.0-0.012); NRBC Pct Auto 0.0 /100WBC (0.0-0.2); Platelet Count 224 X10*3/uL (160-400); Red Blood Count 2.30 X10*6/uL (4.60-5.80); Reticulocytes Absolute 0.025 X10*6/uL (0.026-0.095); White Blood Count 3.2 X10*3/uL (4.8-10.8)
[2024-08-28 09:16] LABS: Mean Corpuscular Volume 111.7 fL (80.0-98.0)
[2024-08-28 09:49] LABS: Alanine Aminotransferase 15 U/L (0-40); Albumin Level 2.9 g/dL (3.5-5.0); Alkaline Phosphatase 64 U/L (39-117); Anion Gap 12 (12-20); Aspartate Amino Transferase 51 U/L (5-37); Blood Urea Nitrogen 18 mg/dL (9-16); Calcium 9.2 mg/dL (8.4-10.2); Carbon Dioxide 25 mmol/L (22-29); Chloride 106 mmol/L (96-108); Cholesterol 103 mg/dL (<200); Estimated Glomerular Filt Rate 49; HDL Cholesterol 24 mg/dL (>40); Iron 95 mcg/dL (45-160); Percent Iron Saturation 50 % (15-50); Potassium 4.3 mmol/L (3.3-5.1); Sodium 139 mmol/L (135-145); Total Iron Binding Capacity 189 mcg/dL (228-428); Total Protein 11.0 g/dL (6.5-8.0); Triglycerides 112 mg/dL (<150); Unsaturated Iron Binding 94 ug/dL
[2024-08-28 10:13] LABS: Ferritin 410 ng/mL (20-250); Free T4 (Free Thyroxine) 0.99 ng/dL (0.71-1.85); Thyroid Stimulating Hormone 1.56 uIU/mL (0.32-4.0)
[2024-08-28 10:22] LABS: Folate 7.0 ng/mL (> or = 4.0); Vitamin B12 366 pg/mL (200-900)
== END 2024-08-28 08:36 | disposition home or self-care (01) ==
LOC: HO.LAB 08:35
PROVIDERS: PCP Internal Medicine; Visit Provider Internal Medicine
DX: E78.00 Pure hypercholesterolemia, unspecified (principal); D64.9 Anemia, unspecified
CPT/HCPCS: 36415; 80053; 80061; 82607; 82728; 82746; 83540; 84439; 84443; 85025; 85045

== ENCOUNTER 2024-08-29 11:00 | Outpatient (REF) | payer MEDICARE, OTHER, SELFPAY ==
[2024-08-29 12:09] LABS: Appearance Urine Clear; Glucose Urine UA Negative (Negative); PH 6.0 (5.0-9.0); Specific Gravity - Urine 1.020 (1.005-1.025); UMIC TRIGGER UACC YES
--- OUTSIDE RECORDS SUMMARY | 2024-08-29 12:52 | XMS_ITS | Clinical Summary ---
Author Organization [facility] Address [address] [place] [address] Care Team Providers Care Signal Apprentice Name Role Phone Jeramy Crespo DO Primary Care Provider [phone] Allergies No known active allergies Medications lisinopril [...] drink = 0.6 oz pur e alcohol) [facility] Safety Answer Date Recorded How [...] this topic Medical Devices Implanted Type Area Credit Intern Device Identifier Shelf Expiration Date Model / Serial / Lot Insert Acet Altrx Bear +4mm Ntrl [id number] - S0000 - [id number] Implanted:Qty: 1 on 07/19/2023 by Zay Miller MD at [facility] Implants Left: Hip [employer] 08/14/2027 1221-36-4 54 / 0000 / [id number] Cup Acet Gription Hip Sector Ii [place] 54mm - S0000 - [id number] Implanted:Qty: 1 on 07/19/2023 by Zay Miller MD at [facility] Implants Left: Hip [employer] 03/16/2033 1217-32-0 54 / 0000 / [id number] Stem Fem Col Actis Duofix Hi Ofs 01/27 Sz8 - S0000 - [id number] Implanted:Qty: 1 on 07/19/2023 by Zay Miller MD at [facility] Implants Left: Hip [employer] SYNTHES 11/13/2032 1010-12-0 80 / 0000 / [id number] Head Fem Ultamet Hip Tprd Articul/Jere -2mm 01/27 36mm - S0000 - [id number] Implanted:Qty: 1 on 07/19/2023 by Zay Miller MD at [facility] Implants Left: Hip [employer] 02/14/2028 1365-50-0 00 / 0000 / [id number] Procedures Procedure Name Priority Date/Time Associated Diagnosis Comments BASIC METABOLIC PANEL Routine 07/20/2023 3:48 AM EDT from Last 3 Months or Most Recently Relevant to Health Maintenance Results * (ABNORMAL) Basic metabolic panel (07/20/2023 3:48 AM EDT) Sodium 135(L) 136 - 145 mmol/L 07/20/2023 4:52 AM EDT [facility] Potassium 4.1 3.5 - 5.1 mmol/L 07/20/2023 4:52 AM EDT [facility] [place] Chloride 101 98 - 107 mmol/L 07/20/2023 4:52 AM EDT [facility] [place] Carbon Dioxide 23.0 22.0 - 29.0 mmol/L 07/20/2023 4:52 AM EDT [facility] [place] Anion Gap 11 8 - 16 mmol/L 07/20/2023 4:52 AM EDT [facility] [place] Glucose 129(H) 70 - 115 mg/dL 07/20/2023 4:52 AM EDT [facility] [place] BUN 20.0 6.0 - 20.0 mg/dL 07/20/2023 4:52 AM EDT [facility] [place] Creatinine 1.20 0.70 - 1.20 mg/dL 07/20/2023 4:52 AM EDT [facility] [place] Calcium 8.8 8.6 - 10.2 mg/dL 07/20/2023 4:52 AM EDT [facility] [place] eGFR 61.9 mL/min/{1. 73_m2} 07/20/2023 4:52 AM EDT [facility] [place] Comment: GFR calculated based on [...] MD LAB BLOOD ORDERABLES F inal Result [facility] [address] [address], from Last 3 Months or Most Recently Relevant to Health Maintenance Insurance MEDICARE [facility] Address: [address] [phone] Advance Directives * Full Code (Latest Code Status on File) Date Activated Date Inactivated Comments 07/19/2023 9:10 AM 07/20/2023 3:03 PM * Full Code Date Activated Date Inactivated Comments 07/18/2023 12:05 PM 07/19/2023 9:10 AM * Full Code Date Activated Date Inactivated Comments 07/04/2023 12:53 PM 07/05/2023 10:11 AM Care Teams Signal Apprentice Relationship Specialty Start Date End Date Jeramy Crespo DO [address] [place] [place] [address] PCP - General Family Medicine 06/22/23
== END 2024-08-29 11:01 | disposition home or self-care (01) ==
LOC: HO.LNP 11:00
PROVIDERS: Visit Provider Internal Medicine
DX: R30.0 Dysuria (principal); D64.9 Anemia, unspecified
CPT/HCPCS: 81001; 81003

== ENCOUNTER 2024-09-04 15:42 | Outpatient (AMB) | payer MEDICARE, OTHER, SELFPAY ==
[2024-09-04 15:43] VITALS: BP 148/80; PULSE 92; RESP 18; TEMP 36.4; O2SAT 96; BMI 29.3
--- NOTE | 2024-09-04 15:43 | A.OFFPC_ITS ---
Vital Signs 09/04/24 15:43 Height 5 ft 5 in Weight 176 lb 4 oz BMI 29.3 BP 148/80 H Blood Pressure Location Lt brachial Position Sitting Respiration 18 Pulse 92 Pulse Source Pulse Oximeter Temp 97.5 F Temp Source Temporal Artery Scan Pulse Oximetry (%) 96 Oxygen Delivery Method Room Air Intake Visit Reasons: follow up labs Allergies No Known Allergies (No Known Allergies*) Allergy (Verified 09/04/24 15:46) Tobacco use date assessed: 09/04/24 Fall risk assessment: No Falls in past year Last assessed Fall Risk: 09/04/24 Dental Screening Dental Screen Date: 09/04/24 Did you have a dental visit in the last 12 months?: Yes Did you have a dental problem in the last 6 months where you did not have access to dental care?: No Was dental information given to patient?: Patient has dentist HPI follow up labs HPI Details feeling tired 2 years ago, not biking due to tiredness, no n no v,, no n no v , no b/b sx PFSH Medical History Anemia Macular degeneration Right shoulder pain Jj's esophagus Obesity (BMI 30-39.9) GERD (gastroesophageal reflux disease) Hypertension Hypercholesterolemia Surgical History History of colonoscopy Family History Father Hypertension Mother Hypertension Cancer Social History Housing: House Alcohol intake: former Patient Tobacco Use Status: Never used Tobacco Tobacco use type: Cigarette e-Cigarette/Vaping Use: Never Used Second Hand Smoke Exposure: No service: No Current occupational status: retired Cognitive needs: No Hearing needs: No Vision needs: Yes Questionnaire PHQ-9 Over the last 2 weeks, how often have you been bothered by any of the following problems? 1. Little interest or pleasure in doing things: several days 2. Feeling down, depressed, or hopeless: several days 3. Trouble falling or staying asleep, or sleeping too much: several days 4. Feeling tired or having little energy: nearly every day 5. Poor appetite or overeating: several days 6. Feeling bad about yourself - or that you are a failure or have let yourself or your family down: not at all 7. Trouble concentrating on things, such as reading the newspaper or watching television: not at all 8. Moving or speaking so slowly that other people could have noticed. Or the opposite - being so fidgety or restless that you have been moving around a lot more than usual: not at all 9. Thoughts that you would be better off or of hurting yourself in some way: not at all Total score: 7 Depression Screening Interpretation: Positive Depression Screening Done: Yes 65615 - PHQ-9 Billing: Yes Source: Developed by Drs. Haile Ralph, Samia Chacon, Panfilo Montgomery and colleagues, with an educational kathy from [employer]. Thrive Questionnaire Date Thrive assessed: 09/04/24 I am a: Patient What is your living situation today?: I have a steady place to live Within the past 12 months, did the food you bought not last and you didn't have the money to get more?: Never true Within the past 12 months, did you worry whether your food would run out before you got money to buy more?: Never true Do you have trouble paying for medicines?: No Do you have trouble getting transportation to medical appointments?: No Do you have trouble paying your heating and electricity bill?: No Do you have trouble taking care of your child, family member or friend?: No Do you have trouble with day-to-day activities such as bathing, preparing meals, shopping, managing finances, etc.?: No Are you currently unemployed and looking for a job?: No Are you interested in more education?: No Please select the resources that you would like help with: None Currently or been in a relationship where the following occur: No concerns reported THRIVE Score: 0 AUDIT C Alcohol Use Questionnaire (AUDIT-C) 1. How often do you have a drink containing alcohol?: Never 3. How often do you have six or more drinks on one occasion?: Never Total Score: 0 JAYCOB-7 AMB Questionnaire JAYCOB-7 Date JAYCOB - 7 assessed: 09/04/24 Feeling nervous, anxious, or on edge: 0 = Not at all Not being able to stop or control worryin = Several days Worrying too much about different things: 1 = Several days Trouble relaxin = Several days Being so restless that it is hard to sit still: 0 = Not at all Becoming easily annoyed or irritable: 0 = Not at all Feeling afraid as if something awful might happen: 0 = Not at all Total JAYCOB-7 score (0-4 normal; 5-9 mild; 10-14 moderate; 15-21 severe): 3 Source: Developed by Drs. Haile Ralph, Samia Chacon, Panfilo Montgomery and colleagues, with an educational kathy from [employer]. JAYCOB-7 Assessment Billing JAYCOB-7 Assessment Tool: JAYCOB-7 Assessment 42363 Physical exam (Primary Care) Vital Signs: Last Vital Signs Temp 97.5 F 09/04/24 15:43 Pulse 92 09/04/24 15:43 Resp 18 09/04/24 15:43 BP 148/80 H 09/04/24 15:43 Pulse Ox 96 09/04/24 15:43 Oxygen Delivery Method Room Air 09/04/24 15:43 BMI result Body Mass Index 29.3 Tobacco/Smoking Status: Tobacco use Status Tobacco use date assessed 09/04/24 09/04/24 15:49 Patient Tobacco Use Status Never used Tobacco 09/04/24 15:49 Tobacco use type Cigarette 09/04/24 15:49 e-Cigarette/Vaping Use Never Used 09/04/24 15:49 PHQ-9: PHQ-9 Score PHQ-9: Total score 7 09/04/24 15:49 Depression Screening Interpretation: Positive Thrive Assessment: Date of Thrive Assessment Date Thrive assessed 09/04/24 09/04/24 15:49 Currently or been in a relationship where the following occur: No concerns r eported Const General: alert; No acute distress Eyes Conjunctivae: conjunctivae normal Resp Auscultation: clear to auscultation bilaterally Cardio Rate: regular rate Rhythm: regular rhythm GI Other: Guaiac negative stools Inspection: Yes normal to inspection Extrem General: Yes normal to inspection and No edema Coding Level of Care Code Est Pt Level 4 (61718) Diagnoses Anemia, unspecified type D64.9 Anemia type: unspecified type Overweight (BMI 25.0-29.9) E66.3 Hypercholesterolemia E78.00 Essential hypertension I10 Hypertension type: essential hypertension 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 Concern about paraproteinemias. Referral to Hematology-Oncology will start workup (2) Overweight (BMI 25.0-29.9): Code(s): E66.3 - Overweight Category: Medical Plan: Diet and exercise (3) Hypercholesterolemia: Code(s): E78.00 - Pure hypercholesterolemia, unspecified Category: Medical Plan: Avoid fried foods, chicken skin, eggs, butter margarine, pastries and meat. Be it pork or beef they have a lot of cholesterol will continue to monitor. (4) Hypertension: Code(s): I10 - Essential (primary) hypertension Category: Medical Qualifiers: Hypertension type: essential hypertension Qualified Code(s): I10 - Essential (primary) hypertension Plan: Continue with blood pressure medication. Decrease salt intake and exercise on lisinopril 40 mg once a day (5) Jj's esophagus: Comment: Dr. Whaley May 2017 EGD 4 years Code(s): K22.70 - Jj's esophagus without dysplasia Category: Medical Qualifiers: Jj's esophagus type: without dysplasia Qualified Code(s): K22.70 - Jj's esophagus without dysplasia Plan: Avoid the foods that causes that usually spicy foods, tomato products, juices, coffee, soda and foods that your sensitive to. After eating do not lie down, a llow 3-4 hours before in lie down. And keep the head of bed above 30 degrees to avoid the acid from going up. Plan History of Present Illness The patient is a 79-year-old male presenting with anemia and renal insufficiency. He has a history of hypertension, hypercholesterolemia, GERD, and Jj's esophagus. He reports feeling tired for the past two years, affecting his activities such as biking. The patient denies fever, nausea, vomiting, abdominal pain, cough, and changes in bowel or urinary habits. The patient was last seen in October 2023 for low back pain and was referred to physical therapy. A review of labs from August 28 showed anemia with hemoglobin at 8.7 g/dL and hematocrit at 25.7%, normal electrolytes, and stable renal func tion. Liver enzymes were elevated at 51 U/L. The patient underwent hip replacement surgeries, one four years ago and another two years ago, with thorough preoperative blood evaluations. He has not consumed alcohol in 12 years, and his cholesterol levels are well-controlled. Health Maintenance - Colon cancer screening is due, last performed in 2018. Social History - Exercise: Previously engaged in biking, currently limited due to fatigue. - Alcohol use: No alcohol consumption for the past 12 years. Review of Systems - General: Reports fatigue for the past two years. Denies fever. - Gastrointestinal: Denies nausea, vomiting, abdominal pain, and changes in bowel habits. - Respiratory: Denies cough. - Genitourinary: Denies changes in urinary habits. Physical Exam - Gastrointestinal: Rectal examination performed to check for blood in stool, results not specified. Results - Labs: Hemoglobin 8.7 g/dL, Hematocrit 25.7%, normal electrolytes, stable renal function, elevated liver enzymes at 51 U/L. - Labs: Platelet count normal, white blood cell count mildly low. Plan The plan involves an urgent referral to hematology for anemia evaluation, with repeat blood work to confirm hemoglobin levels. A rectal exam was conducted to exclude gastrointestinal bleeding as a cause of anemia. The patient is advised to stay hydrated and will have follow-up blood work without fasting require ments. The leather piece inspector will contact the patient for further evaluation, potentially including a bone marrow biopsy. The patient should continue to monitor his health and report any new symptoms. Patient was informed and verbally consented to the use of an ambient scribe for clinic note documentation during this visit. Discussion Notes I discussed with the patient the need for an urgent referral to hematology due to the significant drop in hemoglobin levels, and the possibility of a bone marrow biopsy to determine the cause of anemia. We reviewed the lab results, noting the stable renal function and elevated liver enzymes, and I advised the patient to maintain hydration and follow up with the leather piece inspector. Patient Instructions - Follow up with the leather piece inspector as soon as contacted. - Maintain good hydration. - Complete the blood work as scheduled, no fasting required. - Monitor for any new symptoms and report them promptly. Orders: Orders Complete Blood Count Auto Diff Today D64.9 - Anemia, unspecified Immunoglobulins,IgG IgA IgM Today D64.9 - Anemia, unspecified [place]/Lambda Light Chain Serum Today D64.9 - Anemia, unspecified Reticulocyte Count Today D64.9 - Anemia, unspecified Protein Electrophoresis, Serum Today D64.9 - Anemia, unspecified, R79.89 - Other specified abnormal findings of blood chemistry Referrals Hematology & Oncology Referral D64.9 - Anemia, unspecified
--- OUTSIDE RECORDS SUMMARY | 2024-09-04 16:29 | XMS_ITS | Clinical Summary ---
Author Organization [facility] Address [address] [place] [address] Care Team Providers Care Engineer/Conductor Name Role Phone Jeramy Crespo DO Primary Care Provider [phone] Allergies No known active allergies Medications lisinopril [...] drink = 0.6 oz pur e alcohol) [facility] Safety Answer Date Recorded How often does [...] Health Maintenance Due Date Last Done Comments Advance Care Planning 1945 Medicare Annual Wellness (AWV) 1945 Depression Screening 1957 DTaP/Tdap/Td Vaccines (1 - Tdap) 1964 Zoster Vaccines (2 of 2) 06/16/2020 04/21/2020 Pneumococcal Vaccine: 50+ Years (2 of 2 - PPSV23) 04/21/2021 04/21/2020 COVID-19 Vaccine (3 - season) 2023 02/28/2023, 12/28/2020 Diabetes Screening 07/19/2024 07/20/2023, 0 06/22/2023, 05/06/2021, Additional history exists Influenza Vaccine (#1) 2024 12/28/2020 Lipid Panel 11/19/2027 11/18/2022, 1005/2021, 03/30/2021, Additional history exists Respiratory Syncytial Virus [...] this topic Medical Devices Implanted Type Area System Engineer Device Identifier Shelf Expiration Date Model / Serial / Lot Insert Acet Altrx Bear +4mm Ntrl [id number] - S0000 - [id number] Implanted:Qty: 1 on 07/19/2023 by Zay Miller MD at [facility] Ortho Implants Left: Hip [employer] 08/14/2027 1221-36-4 54 / 0000 / [id number] Cup Acet Gription Hip Sector Ii [place] 54mm - S0000 - [id number] Implanted:Qty: 1 on 07/19/2023 by Zay Miller MD at [facility] Ortho Implants Left: Hip [employer] 03/16/2033 1217-32-0 54 / 0000 / [id number] Stem Fem Col Actis Duofix Hi Ofs 01/27 Sz8 - S0000 - [id number] Implanted:Qty: 1 on 07/19/2023 by Zay Miller MD at [facility] Ortho Implants Left: Hip [employer] SY[employer]THES 11/13/2032 1010-12-0 80 / 0000 / [id number] Head Fem Ultamet Hip Tprd Articul/Jere -2mm 01/27 36mm - S0000 - [id number] Implanted:Qty: 1 on 07/19/2023 by Zay Miller MD at [facility] Ortho Implants Left: Hip [employer] 02/14/2028 1365-50-0 00 / 0000 / [id number] Procedures Procedure Name Priority Date/Time Associated Diagnosis Comments BASIC METABOLIC PANEL Routine 07/20/2023 3:48 AM EDT from Last 3 Months or Most Recently Relevant to Health Maintenance Results * (ABNORMAL) Basic metabolic panel (07/20/2023 3:48 AM EDT) Sodium 135(L) 136 - 145 mmol/L 07/20/2023 4:52 AM EDT [facility] Potassium 4.1 3.5 - 5.1 mmol/L 07/20/2023 4:52 AM EDT [facility] Chloride 101 98 - 107 mmol/L 07/20/2023 4:52 AM EDT [facility] Carbon Dioxide 23.0 22.0 - 29.0 mmol/L 07/20/2023 4:52 AM EDT [facility] Anion Gap 11 8 - 16 mmol/L 07/20/2023 4:52 AM EDT [facility] Glucose 129(H) 70 - 115 mg/dL 07/20/2023 4:52 AM EDT [facility] BUN 20.0 6.0 - 20.0 mg/dL 07/20/2023 4:52 AM EDT [facility] Creatinine 1.20 0.70 - 1.20 mg/dL 07/20/2023 4:52 AM EDT [facility] Calcium 8.8 8.6 - 10.2 mg/dL 07/20/2023 4:52 AM EDT [facility] eGFR 61.9 mL/min/{1. 73_m2} 07/20/2023 4:52 AM EDT [facility] Comment: GFR calculated based on [...] MD LAB BLOOD ORDERABLES F inal Result [facility] [address] [place] [address], from Last 3 Months or Most Recently Relevant to Health Maintenance Insurance MEDICARE [facility] Advance Directives * Full Code (Latest Code Status on File) Date Activated Date Inactivated Comments 07/19/2023 9:10 AM 07/20/2023 3:03 PM * Full Code Date Activated Date Inactivated Comments 07/18/2023 12:05 PM 07/19/2023 9:10 AM * Full Code Date Activated Date Inactivated Comments 07/04/2023 12:53 PM 07/05/2023 10:11 AM Care Teams Engineer/Conductor Relationship Specialty Start Date End Date Jeramy Crespo DO [address] [place] [address] PCP - General Family Medicine 06/22/23
== END 2024-09-04 17:38 | disposition home or self-care (01) ==
LOC: HO.HMCH 15:42
PROVIDERS: PCP Internal Medicine; Visit Provider Internal Medicine
DX: D64.9 Anemia, unspecified (principal); E66.3 Overweight; E78.00 Pure hypercholesterolemia, unspecified; I10 Essential (primary) hypertension; K22.70 Barrett's esophagus without dysplasia

== ENCOUNTER → 2024-09-04 15:42 | Outpatient (BNVA) | payer MEDICARE, OTHER, SELFPAY | PROVIDERS: PCP Internal Medicine; Visit Provider Internal Medicine | DX: D64.9 Anemia, unspecified (principal); E78.00 Pure hypercholesterolemia, unspecified; I10 Essential (primary) hypertension; K22.70 Barrett's esophagus without dysplasia; E66.3 Overweight; Z68.29 Body mass index [BMI] 29.0-29.9, adult; Z71.3 Dietary counseling and surveillance | CPT/HCPCS: 96127; 99212 ==

== ENCOUNTER 2024-09-05 11:40 | Outpatient (REF) | payer MEDICARE, OTHER, SELFPAY ==
[2024-09-05 11:57] LABS: MANUAL DIFF FLAG NO
[2024-09-05 12:25] LABS: Hematocrit 24.9 % (42.0-52.0); Hemoglobin 8.6 g/dl (14.0-18.0); Imm Gran Abs Auto 0.01 X10*3/uL (0.00-0.03); Imm Gran Pct Auto 0.3 % (0.0-0.4); Lymphocytes Absolute Auto 1.4 X10*3/uL (1.2-4.9); Mean Corpuscular HGB Conc 34.5 g/dl (31.0-36.0); Mean Corpuscular Hemoglobin 38.1 pg (27.0-33.0); NRBC Abs Auto 0.000 X10*3/uL (0.0-0.012); NRBC Pct Auto 0.0 /100WBC (0.0-0.2); Platelet Count 213 X10*3/uL (160-400); Red Blood Count 2.26 X10*6/uL (4.60-5.80); Reticulocytes Absolute 0.034 X10*6/uL (0.026-0.095); White Blood Count 3.7 X10*3/uL (4.8-10.8)
[2024-09-05 12:26] LABS: Mean Corpuscular Volume 110.2 fL (80.0-98.0)
--- OUTSIDE RECORDS SUMMARY | 2024-09-05 12:33 | XMS_ITS | Clinical Summary ---
Author Organization [facility] Address [address] [place] [address] Care Team Providers Care Extension Division Director Name Role Phone Jeramy Crespo DO Primary Care Provider [phone] Allergies No known active allergies Medications lisinopril [...] drink = 0.6 oz pur e alcohol) [facility] Safety Answer Date Recorded How often [...] this topic Medical Devices Implanted Type Area Sales Service Manager Device Identifier Shelf Expiration Date Model / Serial / Lot Insert Acet Altrx Bear +4mm Ntrl [id number] - S0000 - [id number] Implanted:Qty: 1 on 07/19/2023 by Zay Miller MD at [facility] Ortho Implants Left: Hip [employer] 08/14/2027 1221-36-4 54 / 0000 / [id number] Cup Acet Gription Hip Sector Ii [place] 54mm - S0000 - [id number] Implanted:Qty: 1 on 07/19/2023 by Zay Miller MD at [facility] Ortho Implants Left: Hip [employer] 03/16/2033 1217-32-0 54 / 0000 / [id number] Stem Fem Col Actis Duofix Hi Ofs 01/27 Sz8 - S0000 - [id number] Implanted:Qty: 1 on 07/19/2023 by Zay Miller MD at [facility] Ortho Implants Left: Hip [employer] SY[employer]THES 11/13/2032 1010-12-0 80 / 0000 / [id number] Head Fem Ultamet Hip Tprd Articul/Jere -2mm 01/27 36mm - S0000 - [id number] Implanted:Qty: 1 on 07/19/2023 by Zay Miller MD at [facility] Ortho Implants Left: Hip [employer] 02/14/2028 1365-50-0 00 / 0000 / [id number] Procedures Procedure Name Priority Date/Time Associated Diagnosis Comments BASIC METABOLIC PANEL Routine 07/20/2023 3:48 AM EDT from Last 3 Months or Most Recently Relevant to Health Maintenance Results * (ABNORMAL) Basic metabolic panel (07/20/2023 3:48 AM EDT) Sodium 135(L) 136 - 145 mmol/L 07/20/2023 4:52 AM EDT [facility] Potassium 4.1 3.5 - 5.1 mmol/L 07/20/2023 4:52 AM EDT [facility] Chloride 101 98 - 107 mmol/L 07/20/2023 4:52 AM EDT [facility] Carbon Dioxide 23.0 22.0 - 29.0 mmol/L 07/20/2023 4:52 AM EDT [facility] Anion Gap 11 8 - 16 mmol/L 07/20/2023 4:52 AM EDT [facility] Glucose 129(H) 70 - 115 mg/dL 07/20/2023 4:52 AM EDT [facility] BUN 20.0 6.0 - 20.0 mg/dL 07/20/2023 4:52 AM EDT [facility] Creatinine 1.20 0.70 - 1.20 mg/dL 07/20/2023 4:52 AM EDT [facility] Calcium 8.8 8.6 - 10.2 mg/dL 07/20/2023 4:52 AM EDT [facility] eGFR 61.9 mL/min/{1. 73_m2} 07/20/2023 4:52 AM EDT [facility] Comment: GFR calculated based [...] MD LAB BLOOD ORDERABLES F inal Result [facility] [address] [place] [address], from Last 3 Months or Most Recently Relevant to Health Maintenance Insurance MEDICARE [facility] Advance Directives * Full Code (Latest Code Status on File) Date Activated Date Inactivated Comments 07/19/2023 9:10 AM 07/20/2023 3:03 PM * Full Code Date Activated Date Inactivated Comments 07/18/2023 12:05 PM 07/19/2023 9:10 AM * Full Code Date Activated Date Inactivated Comments 07/04/2023 12:53 PM 07/05/2023 10:11 AM Care Teams Extension Division Director Relationship Specialty Start Date End Date Jeramy Crespo DO [address] [place] [address] PCP - General Family Medicine 06/22/23
[2024-09-05 15:44] LABS: Appearance Urine Clear; Glucose Urine UA Negative (Negative); PH 5.5 (5.0-9.0); Specific Gravity - Urine 1.020 (1.005-1.025)
[2024-09-07 22:48] LABS: PES - Abn Protein Band 1 3.9 g/dL (NONE DETECTED); Prot Elec - Albumin 3.2 g/dL (3.8-4.8); Prot Elec - Alpha1 0.2 g/dL (0.2-0.3); Prot Elec - Alpha2 0.5 g/dL (0.5-0.9); Prot Elec - Beta 1 0.5 g/dL (0.4-0.6); Prot Elec - Beta 2 1.8 g/dL (0.2-0.5); Prot Elec - Gamma 4.9 g/dL (0.8-1.7); Prot Elec - Total Protein 11.0 g/dL (6.1-8.1)
[2024-09-10 16:28] LABS: Kappa, Serum 1970 mg/dL (176-443); Kappa/Lambda Ratio, Serum 53.24 (1.29-2.55); Lambda, Serum 37 mg/dL (91-240)
== END 2024-09-05 11:41 | disposition home or self-care (01) ==
LOC: HO.LAB 11:40
PROVIDERS: PCP Internal Medicine; Visit Provider Internal Medicine
DX: D64.9 Anemia, unspecified (principal); R30.0 Dysuria; R79.89 Other specified abnormal findings of blood chemistry
CPT/HCPCS: 36415; 81003; 82784; 83883; 84165; 85025; 85045

== ENCOUNTER → 2024-09-11 13:20 | Outpatient (BNV) | payer MEDICARE, OTHER, SELFPAY | PROVIDERS: PCP Internal Medicine; Referring Provider Internal Medicine; Visit Provider Internal Medicine | DX: D53.9 Nutritional anemia, unspecified (principal); D50.9 Iron deficiency anemia, unspecified; R53.83 Other fatigue | CPT/HCPCS: 99205; G2211 ==

== ENCOUNTER 2024-09-13 12:51 | Outpatient (REF) | payer MEDICARE, OTHER, SELFPAY ==
--- OUTSIDE RECORDS SUMMARY | 2024-09-13 13:00 | XMS_ITS | Clinical Summary ---
Author Organization [facility] Address [address] [place] [address] Care Team Providers Care Veterinary Receptionist Name Role Phone Jeramy Crespo DO Primary Care Provider [phone] Allergies No known active allergies Medications lisinopril [...] 0.6 oz pur e alcohol) [facility] Safety Answer Date Recorded How [...] this topic Medical Devices Implanted Type Area Carpet Yarn Winder Operator Device Identifier Shelf Expiration Date Model / Serial / Lot Insert Acet Altrx Bear +4mm Ntrl [id number] - S0000 - [id number] Implanted:Qty: 1 on 07/19/2023 by Zay Miller MD at [facility] Ortho Implants Left: Hip [employer] 08/14/2027 1221-36-4 54 / 0000 / [id number] Cup Acet Gription Hip Sector Ii [place] 54mm - S0000 - [id number] Implanted:Qty: 1 on 07/19/2023 by Zay Miller MD at [facility] Ortho Implants Left: Hip [employer] 03/16/2033 1217-32-0 54 / 0000 / [id number] Stem Fem Col Actis Duofix Hi Ofs 01/27 Sz8 - S0000 - [id number] Implanted:Qty: 1 on 07/19/2023 by Zay Miller MD at [facility] Ortho Implants Left: Hip [employer] SYNTHES 11/13/2032 1010-12-0 80 / 0000 / [id number] Head Fem Ultamet Hip Tprd Articul/Jere -2mm 01/27 36mm - S0000 - [id number] Implanted:Qty: 1 on 07/19/2023 by Zay Miller MD at [facility] Ortho Implants Left: Hip [employer] 02/14/2028 1365-50-0 00 / 0000 / [id number] Procedures Procedure Name Priority Date/Time Associated Diagnosis Comments BASIC METABOLIC PANEL Routine 07/20/2023 3:48 AM EDT from Last 3 Months or Most Recently Relevant to Health Maintenance Results * (ABNORMAL) Basic metabolic panel (07/20/2023 3:48 AM EDT) Sodium 135(L) 136 - 145 mmol/L 07/20/2023 4:52 AM EDT [facility] Potassium 4.1 3.5 - 5.1 mmol/L 07/20/2023 4:52 AM EDT [facility] Chloride 101 98 - 107 mmol/L 07/20/2023 4:52 AM EDT [facility] Carbon Dioxide 23.0 22.0 - 29.0 mmol/L 07/20/2023 4:52 AM EDT [facility] Anion Gap 11 8 - 16 mmol/L 07/20/2023 4:52 AM EDT [facility] Glucose 129(H) 70 - 115 mg/dL 07/20/2023 4:52 AM EDT [facility] BUN 20.0 6.0 - 20.0 mg/dL 07/20/2023 4:52 AM EDT [facility] Creatinine 1.20 0.70 - 1.20 mg/dL 07/20/2023 4:52 AM EDT [facility] Calcium 8.8 8.6 - 10.2 mg/dL 07/20/2023 4:52 AM EDT [facility] eGFR 61.9 mL/min/{1. 73_m2} 07/20/2023 4:52 AM EDT [facility] Comment: GFR calculated based [...] MD LAB BLOOD ORDERABLES F inal Result [facility] [address] [place] [address], from Last 3 Months or Most Recently Relevant to Health Maintenance Insurance MEDICARE [facility] Advance Directives * Full Code (Latest Code Status on File) Date Activated Date Inactivated Comments 07/19/2023 9:10 AM 07/20/2023 3:03 PM * Full Code Date Activated Date Inactivated Comments 07/18/2023 12:05 PM 07/19/2023 9:10 AM * Full Code Date Activated Date Inactivated Comments 07/04/2023 12:53 PM 07/05/2023 10:11 AM Care Teams Veterinary Receptionist Relationship Specialty Start Date End Date Jeramy Crespo DO [address] [place] [address] PCP - General Family Medicine 06/22/23
== END 2024-09-13 12:52 | disposition home or self-care (01) ==
LOC: HO.LNP 12:51
PROVIDERS: Visit Provider Internal Medicine
DX: Z01.84 Encounter for antibody response examination (principal); D64.9 Anemia, unspecified
CPT/HCPCS: 86335

== ENCOUNTER 2024-09-25 08:36 | Day surgery (SDC) | payer MEDICARE, OTHER, SELFPAY ==
--- OUTSIDE RECORDS SUMMARY | 2024-09-19 10:06 | XMS_ITS | Clinical Summary ---
Author Organization [employer] Address [address] [place] [address] Care Team Providers Care Microbiological Analyst Name Role Phone Jeramy Crespo DO Primary Care Provider [phone] Allergies No known active allergies Medications lisinopril [...] drink = 0.6 oz pur e alcohol) [facility] Safety Answer Date Recorded How often [...] this topic Medical Devices Implanted Type Area Algebra Teacher Device Identifier Shelf Expiration Date Model / Serial / Lot Insert Acet Altrx Bear +4mm Ntrl [id number] - S0000 - [id number] Implanted:Qty: 1 on 07/19/2023 by Zay Miller MD at [facility] Implants Left: Hip [employer] 08/14/2027 1221-36-4 54 / 0000 / [id number] Cup Acet Gription Hip Sector Ii [place] 54mm - S0000 - [id number] Implanted:Qty: 1 on 07/19/2023 by Zay Miller MD at [facility] Implants Left: Hip [employer] 03/16/2033 1217-32-0 54 / 0000 / [id number] Stem Fem Col Actis Duofix Hi Ofs 01/27 Sz8 - S0000 - [id number] Implanted:Qty: 1 on 07/19/2023 by Zay Miller MD at [facility] Implants Left: Hip [employer] 11/13/2032 1010-12-0 80 / 0000 / [id number] Head Fem Ultamet Hip Tprd Articul/Jere -2mm 01/27 36mm - S0000 - [id number] Implanted:Qty: 1 on 07/19/2023 by Zay Miller MD at [facility] Implants Left: Hip [employer] 02/14/2028 1365-50-0 00 / 0000 / [id number] Procedures Procedure Name Priority Date/Time Associated Diagnosis Comments BASIC METABOLIC PANEL Routine 07/20/2023 3:48 AM EDT from Last 3 Months or Most Recently Relevant to Health Maintenance Results * (ABNORMAL) Basic metabolic panel (07/20/2023 3:48 AM EDT) Sodium 135(L) 136 - 145 mmol/L 07/20/2023 4:52 AM EDT [facility] Potassium 4.1 3.5 - 5.1 mmol/L 07/20/2023 4:52 AM EDT [facility] Chloride 101 98 - 107 mmol/L 07/20/2023 4:52 AM EDT [facility] Carbon Dioxide 23.0 22.0 - 29.0 [...] - 1.20 mg/dL 07/20/2023 4:52 AM EDT [facility] Calcium 8.8 8.6 - 10.2 mg/dL [...] MD LAB BLOOD ORDERABLES F inal Result [facility] [address] [place] [address], from Last 3 Months or Most Recently Relevant to Health Maintenance Insurance MEDICARE [facility] Advance Directives * Full Code (Latest Code Status on File) Date Activated Date Inactivated Comments 07/19/2023 9:10 AM 07/20/2023 3:03 PM * Full Code Date Activated Date Inactivated Comments 07/18/2023 12:05 PM 07/19/2023 9:10 AM * Full Code Date Activated Date Inactivated Comments 07/04/2023 12:53 PM 07/05/2023 10:11 AM Care Teams Microbiological Analyst Relationship Specialty Start Date End Date Jeramy Crespo DO [address] [place] [address] PCP - General Family Medicine 06/22/23
[2024-09-25] VITALS (12 sets, daily range): BP systolic 141–181; BP diastolic 76–107; PULSE 62–84; RESP 11–18; TEMP 36.4–36.6; O2SAT 94–100; BMI 28.7
--- NOTE | ~2024-09-25 | CT_ITS ---
EXAMINATION: CT bone marrow biopsy. CLINICAL INDICATION: Multiple myeloma, initial diagnosis. COMPARISON: None. TECHNIQUE: Following explaining CT fluoroscopy guided bone marrow biopsy procedure, benefits and risk, a written consent was obtained. Patient was placed prone on CT table and limited CT imaging was obtained through the pelvis. An axial imaging was obtained overlying the posterior iliac spine and markers were placed on the skin. Repeat CT imaging was performed and optimal marker was selected and placed on the skin. Marked site was cleaned and draped in usual sterile manner. 1% lidocaine was injected at the marked site. Through a small skin incision a 16-gauge guide needle was advanced through the skin incision the posterior iliac spine under CT fluoroscopy. A simple drill was attached to the bone cutting needle. The bony cortex was penetrated using the drill. The stylet was withdrawn and 20 mL syringes attached to the needle and bone marrow was aspirated. Blood collected was administered in several vacuum tubes and the tubes were gently dated for the mixture to maximum to blood. Subsequently the vertebral attached to the needle was drilled and a core biopsy was performed through the left iliac crest. However consistently there was blood but no bone marrow visualized. As the needle was then advanced to the right iliac crest and a bone marrow biopsy was performed. Postprocedure there guide needle was withdrawn and hemostasis achieved at both skin sites. Sterile dressing applied post procedure. Patient targeted procedure extremely well. Conscious sedation was administered by IR nurse and patient monitored by IR nurse and physician. FINDINGS: On preliminary CT imaging of pelvis obtained reveals nondistended bladder. No free fluid. No pelvic mass or adenopathy. Visualized pelvic bones and the sacrum is unremarkable. There is bilateral hip prosthesis noted. CT fluoroscopy guided aspiration and biopsy performed. CT/CT biopsy asp core bone marrow IMPRESSION: Successful CT fluoroscopy guided bilateral posterior iliac bone marrow aspiration and biopsy performed. Electronically signed by: Bruno Gillette MD 09/26/2024 07:33 AM EDT
[2024-09-25 09:30] LABS: INTERNATIONAL NORM RATIO 1.2 (0.9-1.1); Prothrombin Time 14.2 SEC (10.9-12.4)
== END 2024-09-25 13:00 | disposition home or self-care (01) ==
LOC: HO.SSS 08:36
PROVIDERS: Pathology Anatomic Pathology & Clinical Pathology; Radiology Diagnostic Radiology; PCP Internal Medicine; Visit Provider Internal Medicine
DX: D50.9 Iron deficiency anemia, unspecified (principal); C90.00 Multiple myeloma not having achieved remission; R77.9 Abnormality of plasma protein, unspecified; R53.83 Other fatigue; K22.70 Barrett's esophagus without dysplasia; I10 Essential (primary) hypertension; E78.00 Pure hypercholesterolemia, unspecified; Z96.643 Presence of artificial hip joint, bilateral
CPT/HCPCS: 36415; 38222; 85610; 88184; 88185; 88237; 88264; 88305; 88307; 88311; 88313; 88342; 88344; 88374; 99152; 99153; J2003; J2250; J3010

== ENCOUNTER → 2024-09-25 10:30 | Outpatient (BNV) | payer MEDICARE, OTHER, SELFPAY | PROVIDERS: PCP Internal Medicine; Visit Provider Radiology Diagnostic Radiology | DX: C90.00 Multiple myeloma not having achieved remission (principal) | CPT/HCPCS: 38222; 77012 ==